=== PATIENT | female | born 2000 | race Caucasian/White ===

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

== ENCOUNTER 2018-05-31 12:06 | Emergency (ER) | payer OTHER ==
[2018-05-31 12:19] VITALS: BMI 24.0
[2018-05-31] MEDS ORDERED: Sodium Chloride 0.9% 1,000 ML IV STA (12:32)
[2018-05-31 13:38] LABS: BASO # 0.05 K/mm3 (0.0-2.0); BASO % 0.5 % (0.0-3.0); EOS # 0.3 (0.0-0.7); EOS % 3.1 % (1.5-5.0); GRAN # 6.64 (1.4-6.5); GRAN % 68.6 % (50.0-68.0); LYMPH % 20.4 % (22.0-35.0); MEAN CELL VOLUME 89.3 fl (80.0-105.0); MEAN CORPUSCULAR HEMOGLOBIN 29.6 pg (25.0-35.0); MEAN CORPUSCULAR HGB CONC 33.2 g/dl (31.0-37.0); MEAN PLATELET VOLUME 9.1 fl (7.0-11.0); MONO # 0.7 (0.1-0.6); MONO % 7.4 % (1.0-6.0); RBC 4.39 10^6/uL (3.5-6.1); RED CELL DISTRIBUTION WIDTH 13.1 % (11.5-14.5); WHITE BLOOD COUNT 9.7 10^3/ul (4.5-11.0)
[2018-05-31 13:54] LABS: ALB/GLOB RATIO 1.4 (1.1-1.8); ALBUMIN 4.6 g/dL (3.0-4.8); ALT/SGPT 11 U/L (7-56); AST/SGOT 31 U/L (14-36); BLOOD UREA NITROGEN 12 mg/dL (7-21); CALCIUM 9.6 mg/dL (8.4-10.5); GFR AFRICAN-AMERICAN > 60; GFR NON-AFRICAN AMERICAN > 60
[2018-05-31 14:00] LABS: URINE APPEARANCE CLEAR (CLEAR); URINE BILIRUBIN NEGATIVE (NEGATIVE); URINE BLOOD NEGATIVE (NEGATIVE); URINE COLOR YELLOW (YELLOW); URINE GLUCOSE (UA) NEGATIVE (NEGATIVE); URINE LEUKOCYTE ESTERASE NEGATIVE Leu/uL (NEGATIVE); URINE PROTEIN NEGATIVE mg/dL (<30 mg/dL)
[2018-05-31 14:04] LABS: HCG,QUALITATIVE URINE NEGATIVE (NEGATIVE)
--- NOTE | 2018-05-31 15:04 | CT ---
Date of service: 05/31/2018 PROCEDURE: CT Abdomen and Pelvis without intravenous contrast HISTORY: right flank pain r/o stones COMPARISON: 07/06/2015. TECHNIQUE: CT scan of the abdomen and pelvis was performed without administration of intravenous contrast. Oral contrast was not administered. Coronal and sagittal reformatted images were obtained. . Radiation dose: Total exam DLP = 244.31 mGy-cm. This CT exam was performed using one or more of the following dose reduction techniques: Automated exposure control, adjustment of the mA and/or kV according to patient size, and/or use of iterative reconstruction technique. FINDINGS: LOWER THORAX: The visualized lungs are clear. LIVER: Normal in size. No intrahepatic ductal dilatation. GALLBLADDER AND BILE DUCTS: No calcified gallstones. No biliary dilatation PANCREAS: Normal in size. No ductal dilatation. SPLEEN: Normal in size. ADRENALS: Normal in size. No discrete nodule. KIDNEYS AND URETERS: Normal in size without nephrolithiasis. No hydronephrosis. VASCULATURE: No aortic aneurysm. BOWEL: The small bowel loops are normal in caliber. There is large amount of stool in the colon with fecal stasis in the sigmoid colon and rectum. . No bowel dilatation or wall thickening. No bowel obstruction. APPENDIX: The appendix is retrocecal, normal in caliber with intraluminal air. No inflammatory changes in the right lower quadrant. PERITONEUM: No free fluid. No free air. LYMPH NODES: No enlarged lymph nodes. BLADDER: Well distended and grossly normal in appearance. REPRODUCTIVE: The uterus is normal in size BONES: No acute fracture. OTHER FINDINGS: None. IMPRESSION: No acute abdominal or pelvic abnormality. Specifically, no evidence for acute appendicitis or obstructive uropathy. Constipation. No evidence for bowel obstruction.
--- NOTE | 2018-05-31 15:04 | RAD ---
Date of service: 05/31/2018 PROCEDURE: Radiographs of the Chest and Right Ribs. HISTORY: right posterior chest wall pain COMPARISON: None available. TECHNIQUE: Frontal radiograph of the chest and multiple oblique radiographs of the right ribs were obtained. FINDINGS: RIGHT RIBS: No fracture or focal lesion visualized. LUNGS: Clear. PLEURA: No pneumothorax or pleural fluid. CARDIOVASCULAR: Normal sized heart. No pulmonary vascular congestion. OTHER FINDINGS: None. IMPRESSION: Unremarkable radiographs of the chest and right ribs. No right rib fracture.
--- NOTE | 2018-05-31 15:10 | ED PDOC ---
Arrival/HPI - General Chief Complaint: Rib Injury Time Seen by Provider: 05/31/18 12:32 Historian: Patient - History of Present Illness Narrative History of Present Illness (Text): 05/31/18 13:07 This 17 yo female with pmh kidney stones, presents to this emergency department complaining of right posterior rib pain x 2 days. Patient stated pain is located on her right flank. Patient denies cough, shortness of breath, hemoptysis, n/v, fever, leg swelling, recent travel, recent surgery, calf pain, leg swelling, does, blood disorder, or abnormal gait. Denies control pill. PERC negative for PE Time/Duration: Other Quality: Aching Context: Home Past Medical History - Provider Review Nursing Documentation Reviewed: Yes - Infectious Disease Hx of Infectious Diseases: None - Tetanus Immunization Tetanus Immunization: Up to Date - Reproductive Menopause: No - Cardiac Hx Cardiac Disorders: No - Pulmonary Hx Respiratory Disorders: Yes Hx Asthma: Yes - Neurological Hx Neurological Disorder: No - HEENT Hx HEENT Disorder: No - Renal Hx Renal Disorder: No - Endocrine/Metabolic Hx Endocrine Disorders: No - Hematological/Oncological Hx Blood Disorders: No - Musculoskeletal/Rheumatological Hx Musculoskeletal Disorders: No - Gastrointestinal Hx Gastrointestinal Disorders: No - Genitourinary/Gynecological Hx Genitourinary Disorders: No - Psychiatric Hx Psychophysiologic Disorder: Yes Hx Depression: Yes Hx Substance Use: Yes (marijuana) - Anesthesia Hx Anesthesia: No - Suicidal Assessment Feels Threatened In Home Enviroment: No Family/Social History - Physician Review Nursing Documentation Reviewed: Yes Family/Social History: Other (noncontributory) Smoking Status: Light Smoker < 10 Cigarettes Daily Hx Alcohol Use: Yes Hx Substance Use: Yes (marijuana) Allergies/Home Meds Allergies/Adverse Reactions: Allergies Penicillins Allergy (Verified 06/14/17 16:24) ANAPHYLAXIS olives Allergy (Uncoded 06/14/17 16:24) SWELLING Home Medications: Home Meds Medication Instructions Recorded Confirmed Albuterol HFA [Ventolin HFA 90 1 inh INH PRN PRN 06/14/17 06/14/17 mcg/actuation (8 g)] Review of Systems - Review of Systems Constitutional: Normal. absent: Fatigue, Weight Change, Fevers Eyes: Normal ENT: Normal Respiratory: absent: SOB, Cough, Wheezing Cardiovascular: absent: Palpitations, Edema, Calf Pain, [place], Orthopnea, Syncope Gastrointestinal: Normal. absent: Abdominal Pain, Nausea, Vomiting Genitourinary Female: Normal. absent: Dysuria, Frequency, Hematuria Musculoskeletal: Other (see hpi) Skin: Normal Neurological: Normal. absent: Headache, Dizziness, Focal Weakness, Gait Changes , Speech Changes, Facial Droop, Disequilibrium, Seizure, Other Endocrine: Normal Hemo/Lymphatic: Normal Psychiatric: Normal Physical Exam Vital Signs Temp Pulse Resp BP Pulse Ox 05/31/18 15:30 98.2 F 72 18 110/72 99 05/31/18 13:03 98.4 F 76 17 105/73 97 05/31/18 12:28 98.9 F 88 18 121/74 99 Temperature: Afebrile Blood Pressure: Normal Pulse: Regular Respiratory Rate: Normal Appearance: Positive for: Well-Appearing, Non-Toxic, Comfortable Pain Distress: None Mental Status: Positive for: Alert and Oriented X 3 - Systems Exam Head: Present: Atraumatic, Normocephalic Pupils: Present: PERRL Extroacular Muscles: Present: EOMI Conjunctiva: Present: Normal Mouth: Present: Moist Mucous Membranes Neck: Present: Normal Range of Motion Respiratory/Chest: Present: Clear to Auscultation, Good Air Exchange, Tender to Palpation ((+) right posterior lower rib area mild tender on palpation.). No: Respiratory Distress, Accessory Muscle Use, Wheezes, Decreased Breath Sounds, Rales, Retracting, Rhonchi, Tachypneic Cardiovascular: Present: Regular Rate and Rhythm, Normal S1, S2. No: Murmurs Abdomen: No: Tenderness, Distention, Peritoneal Signs, Rebound, Guarding Back: Present: Normal Inspection. No: CVA Tenderness, Midline Tenderness, Paraspinal Tenderness, Pain with Leg Raise Upper Extremity: Present: Normal Inspection, Normal ROM, NORMAL PULSES, Neurovascularly Intact, Capillary Refill < 2s. No: Cyanosis, Edema Lower Extremity: Present: Normal Inspection, NORMAL PULSES, Normal ROM, Neurovascularly Intact, Capillary Refill < 2 s. No: Edema Neurological: Present: GCS=15, CN II-XII Intact, Speech Normal, Motor Func Grossly Intact, Normal Sensory Function, Normal Cerebellar Funct, Gait Normal, Memory Normal Skin: Present: Warm, Dry, Normal Color. No: Rashes Psychiatric: Present: Alert, Oriented x 3, Normal Insight, Normal Concentration Medical Decision Making ED Course and Treatment: 05/31/18 15:08 Re-evaluation. Patient feels better. Discussed results and plan with patient who expresses understanding. All questions answered and there is agreement with the plan to discharge home with instructions. Patient stable for discharge. Return if symptoms persist or worsen Re-evaluation Time: 15:08 Reassessment Condition: Re-examined, Improved - Lab Interpretations Microbiology Results: Microbiology Results 05/31/18 13:50 Urine Urine Culture - Final No Growth (<1,000 CFU/ML) Lab Results: 05/31/18 13:28 05/31/18 13:28 Lab Results 05/31/18 13:50: Urine Color Yellow, Urine Appearance Clear, Urine pH 7.0, Ur Specific [place] 1.020, Urine Protein Negative, Urine Glucose (UA) Negative, Urine Ketones Negative, Urine Blood Negative, Urine Nitrate Negative, Urine Bilirubin Negative, Urine Urobilinogen 1.0 H, Ur Leukocyte Esterase Negative, Urine HCG, Qual Negative 05/31/18 13:28: Beta HCG, Quant < 2.39 05/31/18 13:28: Sodium 141, Potassium 4.7, Chloride 104, Carbon Dioxide 27, Anion Gap 15, BUN 12, Creatinine 0.6 L, Est GFR ( Amer) > 60, Est GFR ( Non-Af Amer) > 60, Random Glucose 93, Calcium 9.6, Magnesium 2.1, Total Bilirubin 0.7, AST 31, ALT 11, Alkaline Phosphatase 53, Total Protein 7.8, Albumin 4.6, Globulin 3.2, Albumin/Globulin Ratio 1.4 05/31/18 13:28: WBC 9.7, RBC 4.39, Hgb 13.0, Hct 39.2, MCV 89.3, MCH 29.6, MCHC 33.2, RDW 13.1, Plt Count 405, MPV 9.1, Gran % 68.6 H, Lymph % (Auto) 20.4 L, [place] % (Auto) 7.4 H, Eos % (Auto) 3.1, Baso % (Auto) 0.5, Gran # 6.64 H, Lymph # (Auto) 2.0, [place] # (Auto) 0.7 H, Eos # (Auto) 0.3, Baso # (Auto) 0.05 - RAD Interpretation Radiology Orders: 05/31/18 12:33 RIBS RIGHT & PA CHEST [RAD] Stat 05/31/18 12:36 ABD & PELVIS W/O PO OR IV CONT [CT] Stat - Medication Orders Current Medication Orders: Discontinued Medications Sodium Chloride (Sodium Chloride 0.9%) 1,000 mls @ 999 mls/hr IV .Q1H1M STA Stop: 05/31/18 13:32 Last Admin: 05/31/18 13:33 Dose: 999 mls/hr eMAR Start Stop Document 05/31/18 13:33 HI (Rec: 05/31/18 13:53 [id number] Intravenous Solution Start Date 05/31/18 Start Time 13:33 Ketorolac Tromethamine (Toradol) 15 mg IVP STAT STA Stop: 05/31/18 12:34 Last Admin: 05/31/18 13:52 Dose: 15 mg MAR Pain Assessment Document 05/31/18 13:52 HI (Rec: 05/31/18 13:53 [id number][facility] Pain Reassessment Is this a pain reassessment? No Sleep Is patient sleeping during reassessment? No Presence of Pain Presence of Pain Yes Location Left, Right or Bilateral Right Description Description Constant Intensity of Pain at present 6 IVP Administration Document 05/31/18 13:52 HI (Rec: 05/31/18 13:53 [id number]) Charges for Administration # of IVP Administrations 1 Disposition/Present on Arrival - Present on Arrival Any Indicators Present on Arrival: No History of DVT/PE: No History of Uncontrolled Diabetes: No Urinary Catheter: No History of Decub. Ulcer: No History Surgical Site Infection Following: None - Disposition Have Diagnosis and Disposition been Completed?: Yes Diagnosis: Chest wall pain Disposition: HOME/ ROUTINE Disposition Time: 15:08 Patient Plan: Discharge Condition: IMPROVED Discharge Instructions (ExitCare): Costochondritis (DC) Additional Instructions: Call private doctor for follow up visit in 1-2 days. Take medication as instructed. Return to emergency if symptoms worsen Prescriptions: Methocarbamol [Robaxin-750] 750 mg PO BID #14 tablet Naproxen 500 mg PO BID PRN #14 tablet PRN Reason: Pain, Severe (8-10) Referrals: Cyril Smith MD [Primary Care Provider] - Follow up with primary Forms: [employer] ([place]), WORK NOTE
[2018-05-31 23:27] VITALS: BP 110/72; PULSE 72; RESP 18; TEMP 98.2; O2SAT 99
== END 2018-05-31 15:30 | disposition home or self-care (01) ==
LOC: ED 12:06
DX: R07.89 Other chest pain (principal)
CPT/HCPCS: 71101; 74176; 80053; 81003; 81025; 83735; 84702; 84703; 85025; 87086; 96374; 99283; J1885; J7030

== ENCOUNTER 2019-01-03 17:52 | Emergency (ER) | payer OTHER | END 2019-01-03 20:35 | disposition home or self-care (01) | LOC: ED 17:52 ==